=== PATIENT | female | born 1980 | race Caucasian/White ===

== ENCOUNTER 2018-03-06 15:13 | Emergency (ER) | payer OTHER ==
[2018-03-06 16:14] VITALS: BP 109/72; PULSE 72; TEMP 98.8; BMI 30.8
--- NOTE | 2018-03-06 16:17 | PDOC ---
Rapid Medical Evaluation Chief Complaint: Pain, Acute Medical Evaluation: 03/06/18 16:12 I have performed a brief in-person evaluation of this patient. The patient presents with a chief complaint of:pelvic pain - hx ovarian cysts 2 years ago Pertinent physical exam findings: pale, amb. I have ordered the following: UA/ UcG The patient will proceed to the ED for further evaluation. 03/06/18 16:12 03/06/18 16:13
[2018-03-06 18:09] LABS: HCG,QUALITATIVE URINE Negative
[2018-03-06 18:10] LABS: URINE APPEARANCE SLCLOUDY; URINE BILIRUBIN NEGATIVE (<2.0 mg/dL); URINE COLOR YELLOW; URINE GLUCOSE (UA) NEGATIVE (NEGATIVE); URINE KETONE NEGATIVE (NEGATIVE); URINE LEUK ESTERASE 1+ (NEGATIVE); URINE NITRITE NEGATIVE (NEGATIVE); URINE PROTEIN 1+ (NEGATIVE)
[2018-03-06 18:19] LABS: EPI CELLS RARE /HPF (FEW); URINE MUCUS RARE
--- NOTE | 2018-03-06 19:13 | PDOC ---
History of Present Illness - General Chief Complaint: Chest Pain Stated Complaint: CHEST PAIN Time Seen by Provider: 03/06/18 18:03 History Source: Patient - History of Present Illness Initial Comments: 03/06/18 20:44 37-year-old female complaining of left-sided chest pain worse with breathing for 1 day denies heavy lifting, you recent URI, cough, fever/chills, diaphoresis , dizziness, radiating to arm, nausea, vomiting, abdominal pain. Patient also complaining of left pelvic pain similar to when she had ovarian cysts. Denies vaginal bleeding patient reports that the she has an IUD in place. Past History - Past Medical History Allergies/Adverse Reactions: Allergies Allergy/AdvReac Type Severity Reaction Status Date / Time No Known Allergies Allergy Verified 03/06/18 16:14 COPD: No - Suicide/Smoking/Psychosocial Hx Smoking History: Never smoked Have you smoked in the past 12 months: No Information on smoking cessation initiated: No Hx Alcohol Use: No Drug/Substance Use Hx: No Review of Systems - Review of Systems Able to Perform ROS?: Yes Is the patient limited Tristanian proficient: No Respiratory: No: Symptoms reported, See HPI, Cough, Orthopnea, Shortness of Breath, SOB with Exertion, SOB at Rest, Stridor, Wheezing, Productive cough, Hemoptysis, Other Cardiac (ROS): Yes: Chest Pain, Chest Tightness. No: Symptoms Reported, See HPI , Edema, Irregular Heart Rate, Lightheadedness, Palpitations, Syncope, Other ABD/GI: No: Symptoms Reported, See HPI, Abdominal Distended, Abd. Pain w/ defecation, Blood Streaked Bowels, Constipated, Diarrhea, Difficulty Swallowing , Nausea, Poor Appetite, Poor Fluid Intake, Rectal Bleeding, Vomiting, Indigestion, Abdominal cramping, Tarry Stools, Other : Yes: Other (pelvic psin). No: Symptoms Reported, See HPI, Burning, Dysuria , Discharge, Frequency, Flank Pain, Hematuria, Incontinence, Pain, Urgency, Testicular Mass, Testicular Swelling, Lesions, Testicular Pain *Physical Exam - Vital Signs Last Vital Signs Temp Pulse Resp BP Pulse Ox 98.8 F 72 18 109/72 100 03/06/18 16:12 03/06/18 16:12 03/06/18 16:12 03/06/18 16:12 03/06/18 16:12 - Physical Exam General Appearance: Yes: Appropriately Dressed Respiratory/Chest: positive: Lungs Clear, Normal Breath Sounds. negative: Chest Tender Cardiovascular: positive: Regular Rhythm, Regular Rate Female Pelvic Exam: positive: normal external exam, adnexal tenderness (left adnexal tenderness), other (suprapubic tenderness) Gastrointestinal/Abdominal: positive: Normal Bowel Sounds, Soft Musculoskeletal: positive: Normal Inspection Extremity: positive: Normal Capillary Refill, Normal Inspection, Normal Range of Motion Integumentary: positive: Normal Color, Dry, Warm Neurologic: positive: Fully Oriented, Alert, Normal Mood/Affect Moderate Sedation - Procedure Monitoring Vital Signs: Procedure Monitoring Vital Signs Temperature 98.8 F 03/06/18 16:12 Pulse Rate 72 03/06/18 16:12 Respiratory Rate 18 03/06/18 16:12 Blood Pressure 109/72 03/06/18 16:12 O2 Sat by Pulse Oximetry (%) 100 03/06/18 16:12 Heart Score/ECG Review - History History: Slightly suspicious - Electrocardiogram EKG: Normal - Age Age: </= 45 - Risk Factors Based on the list above the patient has:: No risk factors known - Troponin Troponin: </= normal limit - Score Heart Score - Total: 0 - ECG Intrepretation Rhythm: Regular Rhythm Comment:: 03/06/18 21:16 NSR: 67 bpm ED Treatment Course - LABORATORY CBC & Chemistry Diagram: 03/06/18 19:48 03/06/18 19:48 - ADDITIONAL ORDERS Additional order review: Laboratory Results 03/06/18 17:54 Urine Color Yellow Urine Appearance Slcloudy Urine pH 9.0 H Ur Specific [place] 1.023 Urine Protein 1+ H Urine Glucose (UA) Negative Urine Ketones Negative Urine Blood Negative Urine Nitrite Negative Urine Bilirubin Negative Urine Urobilinogen 2.0 H Ur Leukocyte Esterase 1+ H Urine WBC (Auto) 4 Urine RBC (Auto) 3 Ur Epithelial Cells Rare Urine Mucus Rare Urine HCG, Qual Negative Progress Note - Progress Note Progress Note: 1. Chest pain p: labs ekg d-dimer cardiac labs/ 2. Left pelvic pain p: TVUS left ovarian cyst, fibroid uterus, multiple follicles on right, cervical cyst. IUD low UA: + 1 leuks. WBC 4 no bacteria, nitrite negative. patient has no urinary symptoms. patient will follow up with mental health director will not treat based on this UA. UCX pending *DC/Admit/Observation/Transfer Diagnosis at time of Disposition: Pelvic pain Ovarian cyst Qualifiers: Laterality: bilateral Qualified Code(s): N83.201 - Unspecified ovarian cyst, right side Chest pain Qualifiers: Chest pain type: chest pain on breathing Qualified Code(s): R07.1 - Chest pain on breathing - Discharge Dispostion Disposition: HOME - Referrals Referrals: Eliseo Fields MD [Primary Care Provider] - Call tomorrow Eliezer Lee MD [Staff Physician] - Call tomorrow - Patient Instructions Printed Discharge Instructions: DI for Atypical Chest Pain - Post Discharge Activity Forms/Work/School Notes: Back to Work
[2018-03-06 20:13] LABS: BASO % 0.4 % (0-2.0); EOS % 0.5 % (0-4.5); HEMATOCRIT 39.3 % (32.4-45.2); HEMOGLOBIN 13.4 GM/dL (10.7-15.3); LYMPH % 35.2 % (8-40); MCH 31.2 pg (25.7-33.7); MCHC 34.1 g/dl (32.0-36.0); MEAN CELL VOLUME 91.3 fl (80-96); MEAN PLT VOLUME 8.6 fl (7.5-11.1); MONO % 6.5 % (3.8-10.2); NEUT % 57.4 % (42.8-82.8); PLATELET COUNT 323 K/MM3 (134-434); RDW 12.8 % (11.6-15.6)
--- NOTE | 2018-03-06 20:13 | PDOC ---
*Physical Exam - Vital Signs Last Vital Signs Temp Pulse Resp BP Pulse Ox 98.8 F 72 18 109/72 100 03/06/18 16:12 03/06/18 16:12 03/06/18 16:12 03/06/18 16:12 03/06/18 16:12 ED Treatment Course - LABORATORY CBC & Chemistry Diagram: 03/06/18 19:48 03/06/18 19:48 - ADDITIONAL ORDERS Additional order review: Laboratory Results 03/06/18 17:54 Urine Color Yellow Urine Appearance Slcloudy Urine pH 9.0 H Ur Specific [place] 1.023 Urine Protein 1+ H Urine Glucose (UA) Negative Urine Ketones Negative Urine Blood Negative Urine Nitrite Negative Urine Bilirubin Negative Urine Urobilinogen 2.0 H Ur Leukocyte Esterase 1+ H Urine WBC (Auto) 4 Urine RBC (Auto) 3 Ur Epithelial Cells Rare Urine Mucus Rare Urine HCG, Qual Negative Medical Decision Making - Medical Decision Making 03/06/18 20:12 Patient seen by the advanced practice provider under my direct supervision. Ancillary testing reviewed as necessary. I agree with plan as outlined by the advanced practice provider. *DC/Admit/Observation/Transfer Diagnosis at time of Disposition: Pelvic pain, Ovarian cyst, Chest pain - Discharge Dispostion Disposition: HOME - Referrals Referrals: Eliseo Fields MD [Primary Care Provider] - Call tomorrow Eliezer Lee MD [Staff Physician] - Call tomorrow - Patient Instructions Printed Discharge Instructions: DI for Atypical Chest Pain - Post Discharge Activity Forms/Work/School Notes: Back to Work
[2018-03-06] MEDS ORDERED: ASPIRIN 81 MG CHEWABLE TABLETS PO ONE (20:44)
[2018-03-06] MEDS ORDERED: ACETAMINOPHEN 325 MG TABLET (FP) PO ONE (20:44)
[2018-03-06 20:46] LABS: ALBUMIN 3.9 g/dl (3.4-5.0); ALK PHOS 51 U/L (45-117); ANION GAP 7 MMOL/L (8-16); BILIRUBIN,TOTAL 0.4 mg/dL (0.2-1); BLOOD UREA NITROGEN 9 mg/dL (7-18); CALCIUM 8.6 mg/dL (8.5-10.1); CHLORIDE 107 mmol/L (98-107); CO2 26 mmol/L (21-32); CREATININE 0.8 mg/dL (0.55-1.3); GLUCOSE,RANDOM 86 mg/dL (74-106); POTASSIUM 3.9 mmol/L (3.5-5.1); SGOT/AST 13 U/L (15-37); SGPT/ALT 19 U/L (13-61); SODIUM 140 mmol/L (136-145); TOT PROT 7.5 g/dl (6.4-8.2)
[2018-03-06] MEDS ORDERED: IBUPROFEN 600 MG TABLET (FP) PO ONE ×2 (20:54→21:19)
--- NOTE | 2018-03-07 18:16 | EKG ---
Test Reason : Blood Pressure : / mmHG Vent. Rate : 067 BPM Atrial Rate : 067 BPM P-R Int : 148 ms QRS Dur : 094 ms QT Int : 408 ms P-R-T Axes : 057 057 047 degrees QTc Int : 431 ms NORMAL SINUS RHYTHM NORMAL ECG NO PREVIOUS ECGS AVAILABLE Confirmed by MD ROBERT, CHRIS ([id number]) on 03/07/2018 6:15:58 PM Referred By: Confirmed By:CHRIS JONES MD
== END 2018-03-06 21:36 | disposition home or self-care (01) ==
LOC: JER 15:13
DX: R07.1 Chest pain on breathing (principal); N83.202 Unspecified ovarian cyst, left side; N83.201 Unspecified ovarian cyst, right side; D25.9 Leiomyoma of uterus, unspecified
CPT/HCPCS: 36415; 71046-TC-FY; 76817-TC; 80053; 81003; 81015; 82550; 84484; 84703; 85025; 85379; 93005; 93010; 99281-25

== ENCOUNTER 2020-11-12 19:38 | Emergency (ER) | payer OTHER ==
[2020-11-12 19:53] VITALS: BMI 33.2
[2020-11-12 21:22] LABS: BASO % 0.9 % (0-2.0); HEMATOCRIT 38.5 % (32.4-45.2); HEMOGLOBIN 12.9 GM/dL (10.7-15.3); LYMPH % 33.2 % (8-40); MCH 30.8 pg (25.7-33.7); MCHC 33.5 g/dl (32.0-36.0); MEAN PLT VOLUME 7.5 fl (7.5-11.1); MONO % 7.8 % (3.8-10.2); NEUT % 57.1 % (42.8-82.8); PLATELET COUNT 285 10^3/uL (134-434); RBC 4.18 M/mm3 (3.60-5.2); RDW 13.7 % (11.6-15.6); WHITE BLOOD COUNT 10.9 K/mm3 (4.0-10.0)
[2020-11-12 21:23] LABS: PH,URINE 5.5 (5.0-8.0); URINE APPEARANCE CLEAR; URINE BILIRUBIN NEGATIVE (NEGATIVE); URINE COLOR YELLOW; URINE GLUCOSE (UA) NEGATIVE (NEGATIVE); URINE KETONE TRACE (NEGATIVE); URINE LEUK ESTERASE NEGATIVE (NEGATIVE); URINE NITRITE NEGATIVE (NEGATIVE); URINE PROTEIN NEGATIVE (NEGATIVE)
[2020-11-12 21:48] LABS: CALCIUM 8.9 mg/dL (8.5-10.1)
[2020-11-12 21:49] LABS: ALBUMIN 3.8 g/dl (3.4-5.0); BLOOD UREA NITROGEN 16.5 mg/dL (7-18)
[2020-11-12 21:52] LABS: CREATININE 0.8 mg/dL (0.55-1.3)
[2020-11-12 21:53] LABS: BILIRUBIN,TOTAL 0.4 mg/dL (0.2-1); TOT PROT 7.8 g/dl (6.4-8.2)
[2020-11-12] MEDS ORDERED: KETOROLAC TROMETHAMINE 30 MG/1 ML VIAL IVPUSH ONE (22:39)
[2020-11-12] MEDS ORDERED: KETOROLAC TROMETHAMINE 30 MG/1 ML VIAL ONE (22:47)
[2020-11-13 01:27] VITALS: BP 113/71; PULSE 54; TEMP 98.5
== END 2020-11-13 02:08 | disposition home or self-care (01) ==
LOC: JER 19:38
PROC: 3E0333Z Introduction of Anti-inflammatory into Peripheral Vein, Percutaneous Approach (ICD-10-PCS; principal; 2020-11-12)
DX: D25.9 Leiomyoma of uterus, unspecified (principal); R10.30 Lower abdominal pain, unspecified
CPT/HCPCS: 36415; 74177-TC; 76830-TC; 80053; 81003; 84703; 85025; 87086; 87186; 87491; 87591; 99285-25; Q9967

== ENCOUNTER → 2021-12-28 | Day surgery (SDC) | payer OTHER ==
[~2021-12-28] MED LIST: ACETAMINOPHEN INJECTION 100 ML IVPB ONE; ISOSULFAN BLUE 50 MG/5 ML VIAL SQ ONE; LIDOCAINE HCL 0.5%, 5 MG/ML (50mL SDVIAL) ONE
== END | disposition home or self-care (01) ==
LOC: JRADUS-SUR 08:07
PROVIDERS: ATTEND Surgery Surgical Oncology
PROC: BH41ZZZ Ultrasonography of Left Breast (ICD-10-PCS; principal; 2021-12-28)
DX: N60.92 Unspecified benign mammary dysplasia of left breast (principal)
CPT/HCPCS: 19285; A4648; 19281

== ENCOUNTER 2021-12-30 04:07 | Day surgery (SDC) | payer OTHER ==
[2021-12-25 14:18] VITALS: BMI 31.6
[2021-12-30] MEDS ORDERED: MIDAZOLAM HCL 2 MG/2 ML SINGLE DOSE VIAL ONE ×2 (14:45→15:09)
[2021-12-30] MEDS ORDERED: DEXAMETHASONE SOD PHOSPHATE 4 MG/1 ML VIAL ONE (14:45)
[2021-12-30] MEDS ORDERED: ONDANSETRON 4 MG/2 ML VIAL ONE (14:45)
[2021-12-30] MEDS ORDERED: PROPOFOL 20 ML ONE ×2 (14:56→15:24)
[2021-12-30] MEDS ORDERED: LIDOCAINE HCL 0.5%, 5 MG/1 ML (50mL MDV) NR ONE (15:25)
[2021-12-30] MEDS ORDERED: ACETAMINOPHEN 1000 MG/100 ML BAG IVPB ONE ×2 (15:49→16:12)
[2021-12-30] MEDS ORDERED: ONDANSETRON 4 MG/2 ML VIAL IVPUSH PRN (15:49)
[2021-12-30] MEDS ORDERED: LACTATED RINGERS SOLUTION 1,000 ML IV SCH (16:00)
[2021-12-30 18:13] VITALS: RESP 18; TEMP 97.8
[2021-12-30 18:17] VITALS: BP 110/78; PULSE 60
== END 2021-12-30 17:20 | disposition home or self-care (01) ==
LOC: JASU-SURG 04:07
PROVIDERS: ATTEND Surgery Surgical Oncology
PROC: 0HBU0ZX Excision of Left Breast, Open Approach, Diagnostic (ICD-10-PCS; principal; 2021-12-30 14:00)
DX: D24.2 Benign neoplasm of left breast (principal)
CPT/HCPCS: 76098-TC-FY; 88307-TC; 88341-TC; 88342-TC; 94760

== ENCOUNTER → 2023-06-02 | Day surgery (SDC) | payer OTHER | END | disposition home or self-care (01) | LOC: FRADUS-SUR 11:40 | PROVIDERS: ATTEND Registered Nurse | PROC: 0HBU3ZX Excision of Left Breast, Percutaneous Approach, Diagnostic (ICD-10-PCS; principal; 2023-06-02) | DX: D24.2 Benign neoplasm of left breast (principal); N64.89 Other specified disorders of breast; N63.22 Unspecified lump in the left breast, upper inner quadrant | CPT/HCPCS: 19083; 77065-TC; 88305-TC ==